=== PATIENT | female | born 1985 | race American Indian/Alaskan Native ===

== ENCOUNTER 2022-11-25 07:55 | Day surgery (SDC) | payer MEDICAID ==
[2022-11-20 16:02] LABS: BASOPHILS % (AUTO) 0.5 % (0-1); EOSINOPHILS # (AUTO) 0.1 X10'3 (0-0.9); EOSINOPHILS % (AUTO) 1.4 % (0-6); LYMPHOCYTES # (AUTO) 2.1 X10'3 (1.1-4.8); LYMPHOCYTES % (AUTO) 31.9 % (21-51); MEAN CORPUSCULAR HEMOGLOBIN 29.7 PG (27.0-31.0); MEAN CORPUSCULAR HGB CONC 33.6 g/dL (33.0-36.5); MEAN CORPUSCULAR VOLUME 88.3 FL (78-98); MEAN PLATELET VOLUME 7.7 FL (7.4-10.4); MONOCYTES # (AUTO) 0.5 X10'3 (0-0.9); MONOCYTES % (AUTO) 7.5 % (2-12); NEUTROPHILS # (AUTO) 3.9 X10'3 (1.8-7.7); NEUTROPHILS % (AUTO) 58.7 % (42-75); PRE OP HEMATOCRIT 39.7 % (35.0-45.0); PRE OP HEMOGLOBIN 13.4 g/dL (12.0-16.0); PRE OP PLATELET COUNT 357 X10'3 (140-440); PRE OP WHITE BLOOD COUNT 6.7 10'3 (4.8-10.8); RED CELL DISTRIBUTION WIDTH 12.7 % (11.5-14.5)
[2022-11-20 16:28] LABS: ALBUMIN 3.6 G/DL (3.4-5.0); ALBUMIN/GLOBULIN RATIO 0.8 (1.1-1.5); ALKALINE PHOSPHATASE 96 IU/L (46-116); BLOOD UREA NITROGEN 10 MG/DL (7-18); BUN/CREATININE RATIO 17.2 (10.0-20.0); CALCIUM 9.5 MG/DL (8.5-10.1); CHLORIDE 104 MMOL/L (99-107); CREATININE 0.58 MG/DL (0.40-0.90); PRE OP ALT 50 U/L (30-65); PRE OP ANION GAP 7 (8-16); PRE OP AST 28 U/L (10-37); PRE OP BILIRUB, TOTAL 0.3 MG/DL (0.0-1.0); PRE OP GLUCOSE 97 MG/DL (70-104); PRE OP POTASSIUM 4.3 MMOL/L (3.4-5.1); PRE OP SODIUM 136 MMOL/L (135-145); TOTAL CARBON DIOXIDE 25.3 MMOL/L (24-32); TOTAL PROTEIN 8.1 G/DL (6.4-8.2); eGFR > 90 ML/MIN
[2022-11-20 16:30] LABS: HCG SERUM QL NEGATIVE
[~2022-11-25] VITALS: Ht 165.1 cm; Wt 104.9 kg
[~2022-11-25 07:55] MED LIST: BUPIVAcaine/PF 2.5mg/ml (0.25%) 10ml vial ONE; ESCI20TA39 PO; HYDR50TA65 PO; LIOT5TAB10 PO; PREG75CA76 PO; THYR180T2 PO; cefazolin 2gm/D5W 100mL 100 ML IV ONE; famotidine 20mg tablet PO ONE; ringers solution, lacted 1,000 ML IV SCH
[2022-11-25 08:05] VITALS: BP 128/70; PULSE 103; RESP 16; TEMP 95.9; O2SAT 99
[2022-11-25] MEDS ORDERED: LIDOcaine 0.5% (5mg/ml) 50ml vial ONE (08:41)
[2022-11-25] MEDS ORDERED: fentaNYL/PF 50MCG/1 ML 2ML syringe ONE (09:20)
[2022-11-25] MEDS ORDERED: midazolam 1 mg/ML 2ml injection ONE (09:20)
[2022-11-25] MEDS ORDERED: ondansetron/PF 4mg/2ml inj ONE (09:42)
[2022-11-25] MEDS ORDERED: BUPIVAcaine/PF 2.5 mg/ml (0.25%) 30ml vial IJ ONE (10:14)
[2022-11-25] MEDS ORDERED: propofol inj 20 ML IV ONE (10:18)
[2022-11-25 10:22] VITALS: BP 111/74; PULSE 99; RESP 14; O2SAT 95
--- NOTE | 2022-11-25 10:22 | NUR ---
Received from OR via [facility], accompanied by Anesthesiologist and report given by MILKA Anesthesiologist. PATIENT ALERT & AWAKE, DENIES PAIN, V/S WNL, PIV 20G TO RIGHT HAND, LEFT WRIST DRESSING C/D/I. ICE AND ELEVATED LUE. Addendum: 11/25/22 at 1037 by Adriel Valentin RN Amended: Links added.
[2022-11-25 10:30] VITALS: BP 94/63; PULSE 96; RESP 13; O2SAT 95
[2022-11-25 10:40] VITALS: BP 98/55; PULSE 95; RESP 14; O2SAT 95
[2022-11-25 10:50] VITALS: BP 97/64; PULSE 95; RESP 12; O2SAT 95
--- NOTE | 2022-11-25 10:57 | NUR ---
ALL DISCHARGE CRITERIA HAS BEEN MET. VSS, PAIN AT A TOLERABLE LEVEL, ABLE TO SAFELY AMBULATE AND TRANSFER SELF. IV TAKEN OUT WITHOUT ANY COMPLICATIONS. ALL DISCHARGE INSTRUCTIONS COVERED WITH PATIENT AND ALL QUESTIONS ANSWERED. PATIENT TAKEN OUT VIA WHEELCHAIR WITH ALL BELONGINGS TO PERSONAL VEHICLE WHERE FAMILY DROVE PATIENT HOME. Addendum: 11/25/22 at 1101 by Adriel Valentin RN Amended: Links added.
== END 2022-11-25 10:57 | disposition home or self-care (01) ==
LOC: PAS 07:55
PROVIDERS: ATTEND Orthopaedic Surgery Hand Surgery
DX: G56.02 Carpal tunnel syndrome, left upper limb (principal); G43.909 Migraine, unspecified, not intractable, without status migrainosus; M19.90 Unspecified osteoarthritis, unspecified site; F32.A Depression, unspecified; F41.9 Anxiety disorder, unspecified; F12.90 Cannabis use, unspecified, uncomplicated; Z79.899 Other long term (current) drug therapy; Z79.84 Long term (current) use of oral hypoglycemic drugs; F10.91 Alcohol use, unspecified, in remission
CPT/HCPCS: 29848; 36415; 80053; 82948; 84703; 85025; J0690; J2250; J2405; J2704; J3010; J3490; J7030; J7120; Z7506; Z7512; A4215; A6449; A7000

== ENCOUNTER 2023-05-05 09:59 | Day surgery (SDC) | payer MEDICAID ==
[2023-05-01 14:13] LABS: BASOPHILS % (AUTO) 0.4 % (0-1); EOSINOPHILS # (AUTO) 0.3 X10'3 (0-0.9); EOSINOPHILS % (AUTO) 4.9 % (0-6); LYMPHOCYTES # (AUTO) 2.2 X10'3 (1.1-4.8); LYMPHOCYTES % (AUTO) 33.8 % (21-51); MEAN CORPUSCULAR HEMOGLOBIN 28.2 PG (27.0-31.0); MEAN CORPUSCULAR HGB CONC 33.2 g/dL (33.0-36.5); MEAN PLATELET VOLUME 7.5 FL (7.4-10.4); MONOCYTES # (AUTO) 0.3 X10'3 (0-0.9); MONOCYTES % (AUTO) 5.4 % (2-12); NEUTROPHILS # (AUTO) 3.5 X10'3 (1.8-7.7); NEUTROPHILS % (AUTO) 55.5 % (42-75); PRE OP HEMOGLOBIN 13.6 g/dL (12.0-16.0); PRE OP PLATELET COUNT 340 X10'3 (140-440); PRE OP WHITE BLOOD COUNT 6.4 10'3 (4.8-10.8); RED BLOOD COUNT 4.83 X10'6 (4.20-5.60); RED CELL DISTRIBUTION WIDTH 13.9 % (11.5-14.5)
[2023-05-01 14:25] LABS: BLOOD UREA NITROGEN 0 MG/DL (7-18); PRE OP AST 5 U/L (10-37); PRE OP BILIRUB, TOTAL 0.4 MG/DL (0.0-1.0); TOTAL CARBON DIOXIDE 25.6 MMOL/L (24-32); TOTAL PROTEIN 8.5 G/DL (6.4-8.2)
[2023-05-01 14:28] LABS: HCG SERUM QL NEGATIVE
[2023-05-01 15:29] LABS: ALBUMIN 3.7 G/DL (3.4-5.0); ALBUMIN/GLOBULIN RATIO 0.8 (1.1-1.5); ALKALINE PHOSPHATASE 119 IU/L (46-116); CHLORIDE 105 MMOL/L (99-107); CREATININE 0.75 MG/DL (0.40-0.90); PRE OP ALT 57 U/L (30-65); PRE OP ANION GAP 11 (8-16); PRE OP GLUCOSE 123 MG/DL (70-104); PRE OP POTASSIUM 4.2 MMOL/L (3.4-5.1); PRE OP SODIUM 139 MMOL/L (135-145); eGFR 86 ML/MIN
[~2023-05-05] VITALS: Ht 165.1 cm; Wt 104.3 kg
[2023-05-05] VITALS (8 sets, daily range): BP systolic 120–141; BP diastolic 58–94; PULSE 96–109; RESP 10–16; TEMP 98.7; O2SAT 95–97
[2023-05-05] MEDS: cefazolin 2gm/D5W 100mL 100 ML IV ONE (05:30)
[2023-05-05] MEDS: famotidine 20mg tablet PO ONE (05:30)
[~2023-05-05 09:59] MED LIST changes: -BUPIVAcaine/PF 2.5mg/ml (0.25%) 10ml vial ONE; +DULO30CA52 PO; -ESCI20TA39 PO; +GABA300C PO; -HYDR50TA65 PO; -PREG75CA76 PO; -cefazolin 2gm/D5W 100mL 100 ML IV ONE; -famotidine 20mg tablet PO ONE
[2023-05-05] MEDS ORDERED: proCHLORperazine 10 MG/2 ml inj IV PRN ×2 (10:35→11:40)
[2023-05-05] MEDS ORDERED: ringers solution, lacted 1,000 ML IV SCH ×2 (10:35→11:40)
[2023-05-05] MEDS ORDERED: ondansetron/PF 4mg/2ml inj IV PRN ×2 (10:35→11:40)
[2023-05-05] MEDS ORDERED: fentaNYL/PF 50MCG/1 ML 2ML syringe IV PRN ×2 (10:35)
[2023-05-05] MEDS ORDERED: morphine 2 MG/ML inj. syringe IV PRN (11:40)
[2023-05-05] MEDS ORDERED: meperidine/PF 25mg/ml syringe IV PRN ×3 (11:40)
[2023-05-05] MEDS ORDERED: morphine 4 MG/ML inj SYRINge IV PRN (11:40)
[2023-05-05] MEDS ORDERED: fentaNYL/PF 50MCG/1 ML 2ML syringe ONE (12:00)
[2023-05-05] MEDS ORDERED: propofol inj 20 ML IV ONE (12:04)
[2023-05-05] MEDS ORDERED: midazolam 1 mg/ML 2ml injection ONE (12:04)
[2023-05-05] MEDS: BUPIVAcaine/PF 2.5mg/ml (0.25%) 10ml vial ONE (12:14)
[2023-05-05] MEDS: LIDOcaine 2% (20mg/ml) 5ml vial ONE (12:14)
[2023-05-05] MEDS: ondansetron 4mg rapidly disintigrating tab PO ONE (13:40)
[2023-05-05] MEDS ORDERED: LIDOcaine 2% (20mg/ml) 5ml vial ONE (13:54)
[2023-05-05] MEDS ORDERED: BUPIVAcaine/PF 2.5mg/ml (0.25%) 10ml vial ONE (13:54)
== END 2023-05-05 13:45 | disposition home or self-care (01) ==
LOC: PAS 09:59
PROVIDERS: ATTEND Orthopaedic Surgery Hand Surgery
DX: G56.01 Carpal tunnel syndrome, right upper limb (principal); G43.909 Migraine, unspecified, not intractable, without status migrainosus; E66.9 Obesity, unspecified; Z68.38 Body mass index [BMI] 38.0-38.9, adult; E03.9 Hypothyroidism, unspecified; M19.90 Unspecified osteoarthritis, unspecified site; F41.9 Anxiety disorder, unspecified; Z98.890 Other specified postprocedural states; Z79.899 Other long term (current) drug therapy; Z79.84 Long term (current) use of oral hypoglycemic drugs
CPT/HCPCS: 29848; 36415; 80053; 82948; 84703; 85025; J0690; J2250; J2704; J3010; J3490; J7030; J7120; Z7506; Z7512; A4215; A6449; A7000

== ENCOUNTER 2023-09-19 09:48 | Outpatient (CLI) | payer BC, MEDICAID ==
[~2023-09-19 09:48] MED LIST changes: -ringers solution, lacted 1,000 ML IV SCH
[2023-09-19] MEDS ORDERED: GADOTERATE MEGLUMINE 7.5 MMOL/15 ML VIAL IV ONE (18:39)
== END 2023-09-19 23:59 | disposition home or self-care (01) ==
LOC: MRI 09:48
PROVIDERS: ATTEND Nurse Practitioner Family
DX: M50.33 Other cervical disc degeneration, cervicothoracic region (principal); R20.2 Paresthesia of skin; M48.03 Spinal stenosis, cervicothoracic region; M47.812 Spondylosis without myelopathy or radiculopathy, cervical region; R20.0 Anesthesia of skin; J34.89 Other specified disorders of nose and nasal sinuses; J32.0 Chronic maxillary sinusitis; N83.299 Other ovarian cyst, unspecified side
CPT/HCPCS: 70553; 72156; 72157; A9575